=== PATIENT | male | born 1930 | race Caucasian/White ===

== ENCOUNTER 2017-10-28 16:42 | Inpatient (IN) | payer OTHER ==
[~2017-10-28] VITALS: Ht 177.8 cm; Wt 99.9 kg
[~2017-10-28 16:42] MED LIST: CHOLESTYRAMINE378 GM PO; COUMADIN2 MG PO; LIPITOR20 MG PO; OMEPRAZOLE20 MG PO; TOPROL XL100 MG PO; ZESTRIL2.5 MG PO; ZESTRIL5 MG PO
[2017-10-28 17:12] LABS: HEMATOCRIT 46.7 % (38.0-50.0); MCH 30.2 PG (29.0-34.0); MCHC 33.4 G/DL (30.0-36.0); MCV 90.5 FL (86-99); MEAN PLAT.VOLUME 9.3 uM^3 (9.0-12.4); PLATELET COUNT 195 K/uL (156-360); RBC DIS.WIDTH-CV 13.3 % (11.8-14.6); RBC DIS.WIDTH-SD 44.3 % (39-53); RED BLOOD COUNT 5.16 M/uL (4.00-5.50); WHITE BLOOD COUNT 10.8 K/uL (4.1-10.2)
[2017-10-28 17:20] LABS: CHLORIDE 103 mEq/L (99-109); POTASSIUM 3.8 mEq/L (3.7-5.4); SODIUM 137 mEq/L (136-147)
[2017-10-28 17:22] LABS: GLUCOSE 133 mg/dL (70-99)
[2017-10-28 17:23] LABS: ANION GAP 10 MEQ/L (2-14)
[2017-10-28 17:26] LABS: GFR ESTIMATE (CALCULATED) > 59 mL/min/ (58.99-99999); UREA NITROGEN (BUN) 14 mg/dL (9-23)
[2017-10-28 17:33] LABS: TROP-I INTERPRETATION NEGATIVE; TROPONIN-I < 0.01 ng/mL (0.0-0.30)
[2017-10-28 17:34] LABS: INTER. NORMALIZED RATIO 2.2; PROTHROMBIN TIME 24.8 SEC (10.2-12.9)
[2017-10-28 17:35] LABS: MAGNESIUM 1.9 mg/dL (1.3-2.7)
[2017-10-28 17:37] LABS: PTT 37.5 SEC (25-37)
[2017-10-28 17:40] LABS: ALKALINE PHOSPHATASE 90 IU/L (3-129)
[2017-10-28 17:43] LABS: DIRECT BILIRUBIN 0.7 mg/dL (0.0-0.3)
[2017-10-28 18:03] LABS: LIPASE 2638 U/L (1.0-51.0)
[2017-10-28] MEDS ORDERED: METOPROLOL SUCC50 MG PO (19:01)
[2017-10-28] MEDS ORDERED: ATORVASTATIN CA20 MG PO (19:02)
[2017-10-28] MEDS ORDERED: WARFARIN SODIUM2 MG PO (19:02)
[2017-10-28 19:19] LABS: ADD MIUA? YES; BILIRUBIN NEGATIVE; BLOOD SMALL; COLOR YELLOW ((YELLOW)); GLUCOSE (STRIP) NEGATIVE; KETONES NEGATIVE; LEUKOCYTES NEGATIVE; NITRITE NEGATIVE; PROTEIN (STRIP) NEGATIVE; UROBILINOGEN 0.2 MG/DL (0.2-1.0)
[2017-10-28 19:33] LABS: BACTERIA NONE SEEN /HPF; EPITHELIAL CELLS RARE /HPF; MUCUS NONE SEEN /LPF; RED BLOOD CELLS 0-5 /HPF (0-5); UCUL ADDED? NO; WHITE BLOOD CELLS 0-5 /HPF (0-5)
[2017-10-28 22:36] VITALS: BP 179/90
[2017-10-29] VITALS (7 sets, daily range): BP systolic 148–171; BP diastolic 75–90
[2017-10-29 06:32] LABS: EOSINOPHIL (%) 0.1 % (0-5); HEMATOCRIT 44.5 % (38.0-50.0); IMMATURE GRANULOCYTE (%) 0.3 % (0.0-0.7); INSTRUMENT ABS NEUTROPHIL CT 10.5 K/uL; LYMPHOCYTE COUNT 0.4 K/uL (1.0-2.8); MCH 30.3 PG (29.0-34.0); MCHC 33.7 G/DL (30.0-36.0); MCV 89.9 FL (86-99); MEAN PLAT.VOLUME 9.6 uM^3 (9.0-12.4); MONOCYTE (%) 8.6 % (3-12); NEUTROPHIL (%) 87.2 % (45-76); NEUTROPHIL COUNT 10.5 K/uL (1.8-6.4); PLATELET COUNT 187 K/uL (156-360); RBC DIS.WIDTH-CV 13.3 % (11.8-14.6); RBC DIS.WIDTH-SD 44.1 % (39-53); RED BLOOD COUNT 4.95 M/uL (4.00-5.50)
[2017-10-29 06:50] LABS: PTT 33.8 SEC (25-37)
[2017-10-29 06:56] LABS: ALKALINE PHOSPHATASE 78 IU/L (3-129); ANION GAP 8 MEQ/L (2-14); CHLORIDE 102 MEQ/L (99-109); GFR ESTIMATE (CALCULATED) > 59 mL/min/ (58.99-99999); GLUCOSE 132 mg/dL (70-99); LIPASE 214 U/L (1.0-51.0); SAMPLE HEMOLYSIS CHECK 0; SAMPLE ICTERIC CHECK 0; SAMPLE LIPEMIA CHECK 0; SODIUM 138 MEQ/L (136-147); TOTAL BILIRUBIN 2.5 MG/DL (0.0-1.0); UREA NITROGEN (BUN) 15 mg/dL (9-23)
[2017-10-29 07:07] LABS: POTASSIUM 4.7 MEQ/L (3.7-5.4)
[2017-10-30 05:05] VITALS: BP 139/68
[2017-10-30 07:05] LABS: HEMATOCRIT 43.5 % (38.0-50.0); MCH 30.5 PG (29.0-34.0); MCHC 33.8 G/DL (30.0-36.0); MCV 90.2 FL (86-99); MEAN PLAT.VOLUME 9.5 uM^3 (9.0-12.4); PLATELET COUNT 167 K/uL (156-360); RBC DIS.WIDTH-CV 13.6 % (11.8-14.6); RBC DIS.WIDTH-SD 45.1 % (39-53); RED BLOOD COUNT 4.82 M/uL (4.00-5.50); WHITE BLOOD COUNT 18.5 K/uL (4.1-10.2)
[2017-10-30 07:26] LABS: INTER. NORMALIZED RATIO 2.2; PROTHROMBIN TIME 24.9 SEC (10.2-12.9)
[2017-10-30 07:43] LABS: ALKALINE PHOSPHATASE 67 IU/L (3-129); ANION GAP 10 MEQ/L (2-14); CHLORIDE 99 MEQ/L (99-109); DIRECT BILIRUBIN 0.8 mg/dL (0.0-0.3); GFR ESTIMATE (CALCULATED) > 59 mL/min/ (58.99-99999); GLUCOSE 104 mg/dL (70-99); LIPASE 37 U/L (1.0-51.0); POTASSIUM 4.3 MEQ/L (3.7-5.4); SAMPLE HEMOLYSIS CHECK 0; SAMPLE ICTERIC CHECK 1; SAMPLE LIPEMIA CHECK 0; SODIUM 134 MEQ/L (136-147); UREA NITROGEN (BUN) 14 mg/dL (9-23)
[2017-10-30 07:46] LABS: TOTAL BILIRUBIN 4.2 MG/DL (0.0-1.0)
[2017-10-30 08:28] VITALS: BP 149/74
[2017-10-30 12:28] VITALS: BP 148/76
[2017-10-30 15:57] VITALS: BP 143/80
[2017-10-30 20:02] VITALS: BP 175/84
[2017-10-30 23:57] VITALS: BP 162/90
[2017-10-31 04:22] VITALS: BP 170/78
[2017-10-31 05:50] LABS: HEMATOCRIT 44.3 % (38.0-50.0); MCH 30.4 PG (29.0-34.0); MCHC 33.9 G/DL (30.0-36.0); MCV 89.7 FL (86-99); MEAN PLAT.VOLUME 9.8 uM^3 (9.0-12.4); PLATELET COUNT 204 K/uL (156-360); RBC DIS.WIDTH-CV 13.6 % (11.8-14.6); RBC DIS.WIDTH-SD 44.2 % (39-53); RED BLOOD COUNT 4.94 M/uL (4.00-5.50); WHITE BLOOD COUNT 18.2 K/uL (4.1-10.2)
[2017-10-31 05:58] LABS: PROTHROMBIN TIME 22.6 SEC (10.2-12.9)
[2017-10-31 06:32] LABS: ALKALINE PHOSPHATASE 84 IU/L (3-129); ANION GAP 13 MEQ/L (2-14); CHLORIDE 96 MEQ/L (99-109); GFR ESTIMATE (CALCULATED) > 59 mL/min/ (58.99-99999); GLUCOSE 131 mg/dL (70-99); LIPASE 20 U/L (1.0-51.0); POTASSIUM 3.8 MEQ/L (3.7-5.4); SAMPLE HEMOLYSIS CHECK 0; SAMPLE ICTERIC CHECK 1; SAMPLE LIPEMIA CHECK 0; SODIUM 131 MEQ/L (136-147); TOTAL BILIRUBIN 3.9 MG/DL (0.0-1.0); UREA NITROGEN (BUN) 16 mg/dL (9-23)
[2017-10-31 08:56] VITALS: BP 158/79
[2017-10-31 12:17] VITALS: BP 158/79
== END 2017-10-31 12:56 | disposition home or self-care (01) | DRG 440 ==
LOC: EME 16:42 → EDOF 20:06 → ENRESERV 20:08 → 3EAST 22:20
PROVIDERS: Emergency Medicine; Hospitalist; Internal Medicine Gastroenterology
DX: K85.90 Acute pancreatitis without necrosis or infection, unspecified (principal); R74.8 Abnormal levels of other serum enzymes; R59.0 Localized enlarged lymph nodes; I48.2 Chronic atrial fibrillation; R13.10 Dysphagia, unspecified; I10 Essential (primary) hypertension; J84.10 Pulmonary fibrosis, unspecified; E78.5 Hyperlipidemia, unspecified; K21.9 Gastro-esophageal reflux disease without esophagitis; N40.0 Benign prostatic hyperplasia without lower urinary tract symptoms; E66.9 Obesity, unspecified; Z68.31 Body mass index [BMI] 31.0-31.9, adult; F17.290 Nicotine dependence, other tobacco product, uncomplicated; Z79.01 Long term (current) use of anticoagulants; Z86.010 Personal history of colon polyps
CPT/HCPCS: 71020; 71260; 74177; 80048; 80053; 80076; 81003; 83690; 83735; 83880; 84484; 85025; 85027; 85610; 85730; 93005; 99281; 99285; J2270; J7030; J7040; J7120

== ENCOUNTER → 2018-02-01 | Outpatient (CLI) | payer OTHER ==
[~2018-02-01] VITALS: Ht 177.8 cm; Wt 93.4 kg
[~2018-02-01] MED LIST changes: +ATORVASTATIN CA20 MG PO; +ELIQUIS5 MG PO; +METOPROLOL SUCC50 MG PO; -TOPROL XL100 MG PO; +TOPROL XL50 MG PO; +WARFARIN SODIUM2 MG PO; +ZESTRIL10 MG PO; -ZESTRIL5 MG PO
[2018-02-01 10:04] LABS: INTER. NORMALIZED RATIO 1.2
[2018-02-01 10:07] LABS: PTT 29.3 SEC (25-37)
== END | disposition home or self-care (01) ==
LOC: AMB 08:34
PROVIDERS: Internal Medicine Gastroenterology
DX: K86.1 Other chronic pancreatitis (principal); R13.10 Dysphagia, unspecified; I10 Essential (primary) hypertension; I48.91 Unspecified atrial fibrillation; K21.9 Gastro-esophageal reflux disease without esophagitis; E78.00 Pure hypercholesterolemia, unspecified; D69.49 Other primary thrombocytopenia; Z79.01 Long term (current) use of anticoagulants; Z87.891 Personal history of nicotine dependence
CPT/HCPCS: 85610; 85730; J0330